=== PATIENT | male | born 1995 | race Caucasian/White ===

== ENCOUNTER 2022-09-20 17:50 | Emergency (ER) | payer MEDICAID ==
--- NOTE | 2022-09-20 18:44 | XRAY Report ---
PROCEDURE: Chest 2 View X-Ray INDICATIONS: cough TECHNIQUE: 2 views of the chest were acquired. COMPARISON: None FINDINGS: Surgical changes and devices: None. Lungs and pleura: No pleural effusions or pneumothorax. Lungs are clear. Mediastinum: Mediastinal contours are normal. Heart size is normal. Bones and chest wall: No suspicious bony abnormalities. Soft tissues appear unremarkable. IMPRESSION: No acute cardiopulmonary abnormality. Reviewed by: Ha Skinner on 09/20/2022 6:43 PM [facility] Approved by: Ha Skinner on 09/20/2022 6:43 PM [facility] Station ID: [id number]
[2022-09-20 19:50] LABS: CORONAVIRUS 229E-RESP PCR NOT DETECTED; CORONAVIRUS HKU1-RESP PCR NOT DETECTED; CORONAVIRUS NL63-RESP PCR NOT DETECTED; CORONAVIRUS OC43-RESP PCR NOT DETECTED
[2022-09-20 19:52] LABS: B. PARAPERTUSSIS- RESP PCR PAN NOT DETECTED; B. PERTUSSIS- RESP PCR PANEL NOT DETECTED; C. PNEUMONIAE- RESP PCR PANEL NOT DETECTED; HUMAN METAPNEUMOVIRUS NOT DETECTED; INFLUENZA A- RESP PCR PANEL NOT DETECTED; INFLUENZA B - RESP PCR PANEL NOT DETECTED; M. PNEUMONIAE- RESP PCR PANEL NOT DETECTED; PARAINFLUENZA VIRUS 1 NOT DETECTED; PARAINFLUENZA VIRUS 2 NOT DETECTED; PARAINFLUENZA VIRUS 3 NOT DETECTED; PARAINFLUENZA VIRUS 4 NOT DETECTED; RHINOVIRUS/ENTEROVIRUS NOT DETECTED; RSV- RESP PCR PANEL NOT DETECTED; SARS-CoV-2 -RESP PCR PANEL DETECTED
--- NOTE | 2022-09-20 20:00 | ED Physician Documentation ---
PD HPI URI - Stated complaint Stated Complaint: CHEST TIGHTNESS - Chief complaint Chief Complaint: Resp - History obtained from History obtained from: Patient - History of Present Illness Timing - onset: How many days ago (2-3) Timing duration: Days (2-3) Timing details: Abrupt onset, Still present Associated symptoms: Fever, Chills, Nasal congestion, Dry cough, Other (headache) Contributing factors: No: Sick contact, Immunocompromised, Unimmunized Similar symptoms before: Has not had sx before Recently seen: Not recently seen Review of Systems Constitutional: reports: Fever, Chills, Myalgias, Fatigue Nose: reports: Rhinorrhea / runny nose Throat: denies: Sore throat Cardiac: reports: Chest pain / pressure (with coughing) Respiratory: reports: Dyspnea, Cough Musculoskeletal: denies: Neck pain Neurologic: reports: Headache. denies: Altered mental status PD PAST MEDICAL HISTORY - Past Medical History Past Medical History: No - Past Surgical History Past Surgical History: No - Present Medications Home Medications: Ambulatory Orders Medication Instructions Recorded Confirmed HYDROcod/ACETAM 5/325 [Vicodin 1 - 2 ea PO Q6H PRN #15 tablet 04/30/13 5/325] cephALEXin [Keflex] 500 mg PO Q6H #28 capsule 04/30/13 Albuterol Sulf [Ventolin Hfa 2 - 3 puffs INH Q4HR PRN #1 each 09/20/22 Inhaler] Benzonatate [Tessalon] 100 mg PO TID PRN #20 cap 09/20/22 HYDROcod/ACETAM 5/325 [[place] 5/325] 1 ea PO Q6H PRN #12 tablet 09/20/22 Ondansetron Odt [Zofran] 4 mg TL Q6H PRN #10 tablet 09/20/22 - Allergies Allergies/Adverse Reactions: Allergies Allergy/AdvReac Type Severity Reaction Status Date / Time No Known Drug Allergies Allergy Verified 04/30/13 19:36 - Social History Does the pt smoke?: No Smoking Status: Never smoker Does the pt drink ETOH?: No Does the pt have substance abuse?: No - Immunizations Immunizations are current?: Yes Immunizations: TDAP current <10years - POLST Patient has POLST: No PD ED PE NORMAL - Vitals Vital signs reviewed: Yes - General General: Alert and oriented X 3, No acute distress (alert. texting on phone as I enter room. ), Well developed/nourished - HEENT HEENT: Ears normal, Pharynx benign - Neck Neck: Supple, no meningeal sign, No adenopathy - Cardiac Cardiac: RRR, No murmur - Respiratory Respiratory: Clear bilaterally - Abdomen Abdomen: Soft, Non tender - Derm Derm: Normal color, Warm and dry, No rash - Neuro Neuro: Alert and oriented X 3, Normal speech Results - Vitals Vitals: Vital Signs - 24 hr 09/20/22 09/20/22 09/20/22 18:07 20:40 21:01 Temperature 37.0 C 36.8 C Heart Rate 78 82 78 Respiratory 18 24 18 Rate Blood Pressure 109/87 H 141/79 H O2 Saturation 97 96 Oxygen O2 Source Room air - Labs Labs: Laboratory Tests 09/20/22 09/20/22 09/20/22 18:10 20:27 20:27 WBC 7.6 RBC 5.03 Hgb 14.4 Hct 44.1 MCV 87.7 MCH 28.6 MCHC 32.7 RDW 12.7 Plt Count 255 MPV 9.0 Neut # (Auto) 4.6 Lymph # (Auto) 1.7 [place] # (Auto) 0.6 Eos # (Auto) 0.6 Baso # (Auto) 0.0 Absolute Nucleated RBC 0.00 Nucleated RBC % 0.0 Sodium 137 Potassium 4.0 Chloride 99 L Carbon Dioxide 29 Anion Gap 9.0 BUN 10 Creatinine 0.8 Estimated GFR (MDRD) 117 Glucose 117 H Calcium 9.3 Total Bilirubin 0.4 AST 20 ALT 21 Alkaline Phosphatase 70 Total Protein 7.6 Albumin 4.4 Globulin 3.2 Albumin/Globulin Ratio 1.4 Lipase 30 Nasal Adenovirus (PCR) NOT DETECTED Nasal B. parapertussis DNA (PCR) NOT DETECTED Nasal Coronavir 229E PCR NOT DETECTED Nasal Coronavir HKU1 PCR NOT DETECTED Nasal Coronavir NL63 PCR NOT DETECTED Nasal Coronavir OC43 PCR NOT DETECTED Nasal Enterovir/Rhinovir PCR NOT DETECTED Nasal Influenza B PCR NOT DETECTED Nasal Influenza A PCR NOT DETECTED Nasal Parainfluen 1 PCR NOT DETECTED Nasal Parainfluen 2 PCR NOT DETECTED Nasal Parainfluen 3 PCR NOT DETECTED Nasal Parainfluen 4 PCR NOT DETECTED Nasal RSV (PCR) NOT DETECTED Nasal B.pertussis DNA PCR NOT DETECTED Nasal C.pneumoniae (PCR) NOT DETECTED Lai Human Metapneumo PCR NOT DETECTED Nasal M.pneumoniae (PCR) NOT DETECTED Nasal SARS-CoV-2 (PCR) DETECTED A - Rads (name of study) chest xray Radiology: Prelim report reviewed, EMP read indepedently (no acute findings), See rad report PD MEDICAL DECISION MAKING - ED course Complexity details: reviewed results, considered differential (URI symptoms and headache but not meningitic on exam. ), d/w patient Departure - Departure Disposition: Home, Self Care Clinical Impression: COVID-19, Viral syndrome Condition: Stable Record reviewed to determine appropriate education?: Yes Instructions: ED Viral Syndrome Prescriptions: Albuterol Sulf [Ventolin Hfa Inhaler] 2 - 3 puffs INH Q4HR PRN #1 each PRN Reason: Shortness Of Air/Wheezing HYDROcod/ACETAM 5/325 [[place] 5/325] 1 ea PO Q6H PRN #12 tablet PRN Reason: Pain Benzonatate [Tessalon] 100 mg PO TID PRN #20 cap PRN Reason: Cough Ondansetron Odt [Zofran] 4 mg TL Q6H PRN #10 tablet PRN Reason: Nausea / Vomiting Comments: Your chest x-ray is clear without any signs of pneumonia. Your respiratory viral PCR panel was positive for COVID. This would account for your symptoms. We can try to help you with antiviral medicine cold pack Slo-Bid combination of 2 antivirals. Take it twice daily as shown and instructed in the packet. We did send the kit home with you for the 5-day course. We can also try to help with your cough and breathing using a albuterol inhaler 2 to 3 puffs 4 times daily for the next several days to week. Also benzonatate if needed for cough. Regarding general aches and headache, stay well-hydrated and use Tylenol or ibuprofen for simple pains. Add hydrocodone if needed for worse pains. I would anticipate still having reasonable symptoms for another 3 to 4 days. I sent your prescriptions to [facility] pharmacy. I am prescribing a short course of narcotic pain medication for you. These are potentially dangerous and addictive medications that should be used carefully. These medications may constipate you. Take an [id number] stool softener such as docusate twice daily with plenty of water while taking these medications. If you go 24 hours without a bowel movement, take [id number] MiraLAX, per package instructions. Do not drink or drive while taking these medications. If you received narcotic or sedating medications while in the emergency department do not drive for 24 hours. Store this medication in a safe, secure place and out of reach of children. It is a violation of federal law to give or sell this medication to another person or to use in a manner other than prescribed. The ED will not refill narcotic prescriptions, including prescriptions lost or stolen. You can dispose of unwanted medications at the [facility]'s office or at several pharmacies such as [facility]. Discharge Date/Time: 09/20/22 21:09
[2022-09-20] MEDS ORDERED: HYDROcod/ACETAM 5/325 MG TABLET PO STA (20:17)
[2022-09-20] MEDS ORDERED: ALBUTEROL 1 PUFF INH STA (20:17)
[2022-09-20] MEDS ORDERED: KETOROLAC 30 MG/ML VIAL IM STA (20:17)
[2022-09-20] MEDS ORDERED: HYDROcod/ACET 5/325 Prepack 4 PO STA (20:17)
[2022-09-20] MEDS ORDERED: NIRMATRELVIR/RITONAVIR PREPACK PO STA (20:17)
[2022-09-20] MEDS ORDERED: BENZONATATE 100 MG CAPSULE PO STA (20:18)
[2022-09-20] MEDS ORDERED: ONDANSETRON ODT 4 MG Prepack 2 TL PRN (20:18)
[2022-09-20 20:30] LABS: BASOPHILS % (AUTO) 0.5 %; EOSINOPHILS # (AUTO) 0.6 10^3/uL (0.0-0.7); EOSINOPHILS % (AUTO) 7.9 %; HCT - HEMATOCRIT 44.1 % (42.0-52.0); HGB - HEMOGLOBIN 14.4 g/dL (14.0-18.0); LYMPHOCYTES # (AUTO) 1.7 10^3/uL (1.5-3.5); LYMPHOCYTES % (AUTO) 22.2 %; MEAN CORPUSCULAR HEMOGLOBIN 28.6 pg (27.0-31.0); MEAN CORPUSCULAR HGB CONC 32.7 g/dL (32.0-36.0); MEAN CORPUSCULAR VOLUME 87.7 fL (80.0-94.0); MONOCYTES # (AUTO) 0.6 10^3/uL (0.0-1.0); MONOCYTES % (AUTO) 8.3 %; NEUTROPHILS # (AUTO) 4.6 10^3/uL (1.5-6.6); NEUTROPHILS % (AUTO) 60.8 %; PLT - PLATELET COUNT 255 10^3/uL (130-450); RED BLOOD COUNT 5.03 10^6/uL (4.70-6.10); RED CELL DISTRIBUTION WIDTH 12.7 % (12.0-15.0); WHITE BLOOD COUNT 7.6 x10^3/uL (4.8-10.8)
[2022-09-20 20:43] LABS: ALBUMIN 4.4 g/dL (3.2-5.5); ALBUMIN/GLOBULIN RATIO 1.4 (1.0-2.2); BILIRUBIN,TOTAL 0.4 mg/dL (0.2-1.0); CALCIUM 9.3 mg/dL (8.5-10.3); CREATININE 0.8 mg/dL (0.6-1.2); TOTAL PROTEIN 7.6 g/dL (6.7-8.2)
[2022-09-20 21:02] VITALS: BP 141/79
== END 2022-09-20 21:09 | disposition home or self-care (01) ==
LOC: ED 17:50
DX: U07.1 COVID-19 (principal)
CPT/HCPCS: 36415; 71046; 80053; 83690; 85025; 87633; 94640; 94664; 96372; 99283; A9270; J3490

== ENCOUNTER 2023-02-20 22:39 | Emergency (ER) | payer MEDICAID ==
--- NOTE | 2023-02-20 22:43 | ED Physician Documentation ---
PD HPI UPPER EXT INJURY - Stated complaint Stated Complaint: RT FINGER INJ - History obtained from History obtained from: Patient - History of Present Illness Location: Right, Finger (base of little finger) Type of injury: Blunt / blow (he was chopping wood and the ax handle sprung up quickly when he hit a wedge, striking little finger base. Has swelling and bruising.) Where injury occurred: Home Timing - onset: How many hours ago (4) Timing - duration: Hours (4) Timing - details: Abrupt onset, Still present (he states it seemed crooked at first with injury, but then aligned back to straight as he tried to move it. Has swelling, brusing and pain since injury.) Improved by: Rest Worsened by: Moving, Palpating Associated symptoms: Swelling, Discolored. No: Weakness, Numbness Similar symptoms before: Has not had sx before Recently seen: Not recently seen Review of Systems Skin: denies: Abrasion (s), Laceration (s) Neurologic: denies: Numbness PD PAST MEDICAL HISTORY - Past Surgical History Past Surgical History: No - Present Medications Home Medications: Ambulatory Orders Medication Instructions Recorded Confirmed HYDROcod/ACETAM 5/325 [Vicodin 1 - 2 ea PO Q6H PRN #15 tablet 04/30/13 5/325] cephALEXin [Keflex] 500 mg PO Q6H #28 capsule 04/30/13 Albuterol Sulf [Ventolin Hfa 2 - 3 puffs INH Q4HR PRN #1 each 09/20/22 Inhaler] Benzonatate [Tessalon] 100 mg PO TID PRN #20 cap 09/20/22 HYDROcod/ACETAM 5/325 [[place] 5/325] 1 ea PO Q6H PRN #12 tablet 09/20/22 Ondansetron Odt [Zofran] 4 mg TL Q6H PRN #10 tablet 09/20/22 - Allergies Allergies/Adverse Reactions: Allergies Allergy/AdvReac Type Severity Reaction Status Date / Time No Known Drug Allergies Allergy Verified 04/30/13 19:36 - Social History Does the pt smoke?: No Smoking Status: Never smoker Does the pt drink ETOH?: No Does the pt have substance abuse?: No - Immunizations Immunizations are current?: Yes Immunizations: TDAP current <10years - POLST Patient has POLST: No PD ED PE NORMAL - Vitals Vital signs reviewed: Yes - General General: Alert and oriented X 3, No acute distress, Well developed/nourished - Derm Derm: Normal color, Warm and dry - Extremities Extremities: Other (right hand with tender, swelling and bruising proximal phalanx of little finger. 5th MC is not tender. No noted deformity. Flexion of little finger guarded and limited due to pain/swelling but no notable rotational defect. ) - Neuro Neuro: Alert and oriented X 3, No motor deficit, No sensory deficit Results - Vitals Vitals: Vital Signs - 24 hr 02/20/23 22:55 Temperature 37.3 C Heart Rate 86 Respiratory 18 Rate Blood Pressure 122/81 H O2 Saturation 98 Oxygen O2 Source Room air - Rads (name of study) right finger Relevant Findings:: Prelim report reviewed, EMP independent interpretation of test (spiral fracture of proximal phalanx little finger. Not articular. Nonangulated. ), See rad report Procedures - Splint (location) - Minor right ulnar gutter Splint applied by: Physician Type of splint: Prefab velcro wrist Other: Patient tolerated well, No complications, Neurovascular intact PD Medical Decision Making - ED course Complexity details: reviewed results, considered differential (fracture of proximal phalanx little finger, nondisplaced. SPlinted in ER and suggested follow up with Ortho. He declined opioid pain meds. Given Ibuprofen/Tylenol in ER. ), d/w patient Departure - Departure Disposition: 01 Home, Self Care Clinical Impression: Fracture of phalanx of little finger Qualifiers: Encounter type: initial encounter Fracture type: closed Phalanx: proximal Fracture alignment: nondisplaced Laterality: right Qualified Code(s): S62.646A - Nondisplaced fracture of proximal phalanx of right little finger, initial encounter for closed fracture Condition: Stable Record reviewed to determine appropriate education?: Yes Instructions: ED Fx Finger Closed Follow-Up: Orthopedic Care [Provider Group] Comments: Your little finger is broken at the proximal finger bone (phalanx). It appears a spiral type fracture could have broken into 3 pieces. They are however in good position and do not need to be manipulated. At this point the treatment is splinting and protecting the area so it remains in position and heals. The initial swelling and pain will go down quite a bit over the first few days. It will take about 1-1/2 to 2 weeks to firm up with the bone pieces do not shift and are forming a callus. However it takes about 4 to 5 weeks to fully heal. I would suggest following up with orthopedics in about 1-1/2 weeks, call for an appointment. This would be to ensure its on track healing well and that timeframe. For now use the splint to protect it and keep it in position continually. You can remove briefly for washing or cleaning. Tylenol and/or ibuprofen regularly. Ice often tonight and tomorrow for swelling. Discharge Date/Time: 02/20/23 23:41
[2023-02-20] MEDS ORDERED: ACETAMINOPHEN 500 MG TABLET PO STA (22:59)
[2023-02-20] MEDS ORDERED: IBUPROFEN 800 MG TABLET PO STA (22:59)
[2023-02-20 23:00] VITALS: BP 122/81
--- NOTE | 2023-02-21 00:07 | XRAY Report ---
PROCEDURE: Finger(s) RT INDICATIONS: struck base little finger with maul TECHNIQUE: AP hand, 3 views of the fifth finger(s) acquired. COMPARISON: Right hand plain films 08/06/2014. FINDINGS: Bones: No dislocations. There is a mildly comminuted minimally displaced fracture at the base of the fifth proximal phalanx, likely extending into the nondisplaced articular surface. No definite associ ated foreign body seen. No suspicious bony lesions. Soft tissues: No suspicious soft tissue calcifications or masses. IMPRESSION: Presumed open fracture given the clinical history provided at the base of the fifth proximal phalanx, minimally displaced. Reviewed by: Calin Guillen MD on 02/21/2023 12:05 AM PDT Approved by: Calin Guillen MD on 02/21/2023 12:05 AM PDT Station ID: [id number]
== END 2023-02-20 23:41 | disposition home or self-care (01) ==
LOC: ED 22:39
DX: S62.646A Nondisplaced fracture of proximal phalanx of right little finger, initial encounter for closed fracture (principal); W22.8XXA Striking against or struck by other objects, initial encounter; Y93.H9 Activity, other involving exterior property and land maintenance, building and construction
CPT/HCPCS: 73140; 99283; A9270